=== PATIENT | female | born 1980 | race African-American/Black ===

== ENCOUNTER 2022-04-23 13:22 | Outpatient (CLI) | payer OTHER, SELFPAY ==
--- NOTE | ~2022-04-23 | US_ITS ---
Pelvic ultrasound. Clinical History: Abnormal uterine bleeding Technique: Realtime transabdominal and transvaginal scanning of the pelvis was performed. Color flow Doppler and Doppler spectral analysis were performed. Findings: The uterus is anteverted. IUD in place. The endometrial stripe has a thickness of 10 mm. My ometrium is heterogeneous, possibly representing ill-defined fibroids. The right ovary measures 5.3 x 2.2 x 2.5 cm. Small hemorrhagic right ovarian cyst measures 2.7 cm in diameter. The left ovary measures 3.4 x 2.1 x 2.2 cm. No significant left ovarian or adnexal mass is seen. There is a small amount of free fluid in the cul de sac. Impression: Heterogeneous myometrium, possibly representing ill-defined fibroids. IUD in place. 2.7 cm hemorrhagic right ovarian cyst. Given small size, no further follow-up required. Small amount of free fluid. Reviewed, dictated and finalized at location [] AL KILLER Impression: Heterogeneous myometrium, possibly representing ill-defined fibroids. IUD in place. 2.7 cm hemorrhagic right ovarian cyst. Given small size, no further follow-up r equired. Small amount of free fluid.
--- NOTE | ~2022-04-23 | US_ITS ---
EXAMINATION: US soft tissue groin RT DATE: 04/23/2022 14:47 INDICATION: Right inguinal mass. TECHNIQUE: Multiple grayscale and Doppler ultrasound images of the right groin were obtained. COMPARISON: None FINDINGS: Small fat-containing indirect right inguinal hernia measuring 1.8 x 1.8 x 0.7 cm with orifice arising just lateral to the origin of the hypogastric vessels. No evident enlargement with Valsalva or evide nt herniated bowel. IMPRESSION: 1. Small fat-containing indirect right inguinal hernia. Reviewed, dictated and finalized at location A. CATION AIDE
== END 2022-04-23 13:23 | disposition home or self-care (01) ==
PROVIDERS: PCP Nurse Practitioner; Visit Provider Nurse Practitioner
DX: Z30.431 Encounter for routine checking of intrauterine contraceptive device (principal); M79.9 Soft tissue disorder, unspecified; N83.201 Unspecified ovarian cyst, right side
CPT/HCPCS: 76830; 76856; 76882

== ENCOUNTER 2022-06-24 08:00 | Outpatient (CLI) | payer OTHER, SELFPAY ==
--- NOTE | ~2022-06-24 | MM_ITS ---
EXAMINATION: MM screening adali BI w neal HISTORY: Screening mammogram TECHNIQUE: Craniocaudal and mediolateral oblique 3-D tomosynthesis images were obtained and synthetic 2-D images were generated. CAD analysis was submitted and interpreted. COMPARISON: No prior mammogram is available for comparison at this institution. BREAST PARENCHYMAL COMPOSITION: The breasts are extremely dense, which lowers the sensitivity of mamm ography. FINDINGS: Occasional bilateral benign calcifications. There is no evidence of suspicious mass, calcif ication, or architectural distortion to suggest malignancy in either breast. There has been no suspic ious interval change. IMPRESSION: 1. No mammographic evidence of malignancy. 2. Recommend routine screening mammography in one year. BI-RADS Category 2: Benign finding(s). Reviewed, dictated and finalized at location A. COUNTER WORKER
== END 2022-06-24 08:01 | disposition home or self-care (01) ==
LOC: ANHIMG 08:06
PROVIDERS: PCP Nurse Practitioner; Visit Provider Nurse Practitioner
DX: Z12.31 Encounter for screening mammogram for malignant neoplasm of breast (principal)
CPT/HCPCS: 77063; 77067

== ENCOUNTER 2022-07-16 14:59 | Outpatient (CLI) | payer OTHER, SELFPAY | END 2022-07-16 15:00 | disposition home or self-care (01) | LOC: ANHLAB 15:00 | PROVIDERS: PCP Nurse Practitioner; Visit Provider Anesthesiology | DX: K40.90 Unilateral inguinal hernia, without obstruction or gangrene, not specified as recurrent (principal); Z01.818 Encounter for other preprocedural examination | CPT/HCPCS: 36415; 86850; 86900; 86901 ==

== ENCOUNTER 2022-07-18 00:30 | Day surgery (SDC) | payer OTHER, SELFPAY ==
[2022-07-10 14:59] VITALS: BMI 26.2
--- NOTE | 2022-07-10 15:08 | PC.NURSE ---
Report to the Outpatient Waiting Room, entrance under the green pavilion located off [facility], at time 10:00AM on date 07-18-22. Planned Procedure Time: 12:00PM. Time changes happen often and if your time is changed the preop area will call you the afternoon before. - You and your visitor will be asked to self-screen and do not enter if you have any COVID symptoms. - Only one visitor is requested with a max of two and NO children visitors are allowed at this time. - The patient visitor may be requested to leave or wait in car when not with patient due to distancing restrictions. - A mask is optional within the hospital at this time. Patients may have clear liquids (water, carbonated beverages, clear teas, apple juice) until 3 hours prior to surgery (09:00AM) with a maximum of 20 ounces. - No food from midnight until time of surgery Take the following medications with a SIP of water the morning of surgery: N/A DO NOT STOP ANY OF YOUR OTHER PRESCRIPTION MEDICATIONS PRIOR TO SURGERY ?EXCEPT THE FOLLOWING Medications to discontinue per physician VITAMINS AND SUPPLEMENTS Date to take last dose 07-14-22 Please no make-up, nail vietnamese, hairspray, perfume, deodorant, or body powder the day of surgery. No jewelry (including any body piercings) or valuables the day of surgery, leave them at home. Please take a shower or bath the night before, or the morning of, surgery with an antibacterial soap. Wear comfortable, loose fitting clothing. - Jewelry must be removed prior to entering the operating room. Rings and piercings that are not removed may be cut off. - The hospital will not accept responsibility for valuables. - Please leave all valuables, including medications, at home the day of surgery. If you are going home after surgery, a licensed charter and tour bus driver must drive you home. - NO public transportation without another adult if you receive anesthesia. - We recommend that an adult stay with you for 24 hours following discharge. - We also recommend that you do not drive, make important decision, drink alcoholic beverages, or take any drugs that were not prescribed by your health care provider for at least 24 hours after your discharge time. If you or anyone in your household have experienced Covid symptoms in the past week, please notify your surgeon or the nurse liaison at the phone number below for possible testing. Telephone instructions given to PATIENT and asked if any additional questions and then verbalized understanding. Patient advised to call surgeon office or pre surgery nurse liaison [phone] if any additional questions.
--- NOTE | 2022-07-17 09:54 | P.PNAN_ITS ---
Anes - Initial Pre Proc Eval Procedure: Operation Date: 07/18/22 12:00 Proposed Procedures p Robotic Assisted Right Inguinal Hernia Repair with Mesh - Mery De Santiago MD Date/Time: 07/17/22 09:54 Surgeon: Mery De Santiago MD Pre Op Diagnosis: Right Inguinal Hernia Patient Data Age: 41 Gender: F Height: 1.55 m Weight: 63 kg Allergies Allergy/AdvReac Type Severity Reaction Status Date / Time Sulfa (Sulfonamide Allergy Severe Hives Verified 07/10/22 15:01 Antibiotics) Home Medications Medication Instructions Recorded Confirmed Type multivitamin 1 tablet PO DAILY 05/08/22 07/10/22 History ascorbate calcium (vitamin C) 500 1,650 mg PO DAILY 07/10/22 07/10/22 History mg capsule calcium carbonate-vitamin D3 500 1 cap PO DAILY 07/10/22 07/10/22 History mg (1,250 mg)-50 unit capsule lactobacillus combination no.8 3 3 cell PO DAILY 07/10/22 07/10/22 History billion cell capsule Patient hx anesthesia problems: none Family hx anesthesia problems: none Results Review: All pre-operative results and documents have been reviewed as part of the pre- operative evaluation. FOR[facility]LY [facility] Past Medical History Medical History (Updated 07/17/22 @ 09:54 by Chas Vanessa MD) Anxiety Depression Overweight (BMI 25.0-29.9) Family History Family History Father Hypertension Mother Hypertension Social History Social History Social History: caffeine use: Drinks 2 cups coffee daily Smoking status: Never smoker Second hand tobacco smoke exposure: No Alcohol intake: current Drinks per week: 1 Alcohol use details: drinks tequila socially Substance use: never Substance use type: does not use Living arrangements: with family Additional living arrangements comments: single 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 Informed Consent: The patient's anesthetic plan and its attendant risks and benefits were discussed with the patient/family/POA. Questions were solicited and answers provided to the satisfaction of the patient/family/POA.
[2022-07-18] VITALS (11 sets, daily range): BP systolic 97–120; BP diastolic 50–67; PULSE 42–84; RESP 14–20; TEMP 36.6; O2SAT 95–100
[2022-07-18] MEDS: ACETAMINOPHEN 500 MG TABLET 1000 MG PO (10:28)
[2022-07-18] MEDS: LACTATED RINGERS 1,000 ML 30 ML IV CONT ×2 (10:42→13:28)
[2022-07-18] MEDS: KETOROLAC 15 MG/ML VIAL (*BKC) IV PUSH (10:43)
--- NOTE | 2022-07-18 11:58 | WPDHPUPDATE1 ---
History and Physical Update Update Date/Time: 07/18/22 11:58 History and Physical has been reviewed, including an updated exam of the patient. There are NO changes in the patient's condition. Risks, benefits, and alternatives have been discussed and questions answered. Patient agrees to proceed with procedure.
--- NOTE | 2022-07-18 11:58 | PM.IMHP ---
H&P: HPI History of Present Illness Date/Time: 07/18/22 11:58 Chief Complaint: right inguinal hernia Narrative: Meme is a 41 y/o female who presents with a right inguinal hernia at the request of Dr. Au. She reports first noticing a bulge in 2019. She states the bulge does not typically cause pain. She is able to lay down and reduce the bulge. U/S was done at on 04/23/22 which showed a small fat containing indirect right inguinal hernia. She is having regular BM's without difficulty. Review of Systems Review of Systems: All systems reviewed & are unremarkable except as noted in HPI and below PMFSH Past Medical History Medical History Anxiety Depression Overweight (BMI 25.0-29.9) Family History Family History Father Hypertension Mother Hypertension Social History Social History Social History: caffeine use: Drinks 2 cups coffee daily Smoking status: Never smoker Second hand tobacco smoke exposure: No Alcohol intake: current Drinks per week: 1 Alcohol use details: drinks tequila socially Substance use: never Substance use type: does not use Living arrangements: with family Additional living arrangements comments: single 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 Spiritual care concerns: No Meds Home Medications and Allergies Home Medications Medication Instructions Recorded Confirmed Type multivitamin 1 tablet PO DAILY 05/08/22 07/18/22 History ascorbate calcium (vitamin C) 500 1,650 mg PO DAILY 07/10/22 07/18/22 History mg capsule calcium carbonate-vitamin D3 500 1 cap PO DAILY 07/10/22 07/18/22 History mg (1,250 mg)-50 unit capsule lactobacillus combination no.8 3 3 cell PO DAILY 07/10/22 07/18/22 History billion cell capsule Allergies Allergy/AdvReac Type Severity Reaction Status Date / Time Sulfa (Sulfonamide Allergy Severe Hives Verified 07/18/22 10:26 Antibiotics) Vital Signs Vital Signs - 24 hr 07/18/22 10:05 Temperature 36.6 C Pulse Rate 59 L Respiratory Rate 16 Blood Pressure 105/54 L Pulse Oximetry 100 Oxygen Delivery Room Air Exam Const: General: cooperative, comfortable and no acute distress Resp: Auscultation: clear to auscultation bilaterally Cardio: Rate: regular rate Rhythm: regular rhythm GI: Inspection: normal to inspection and non-distended GI Palp: No abdominal tenderness, Yes Soft to palpation, No Tenderness to palpation present (GI), No Guarding due to palpation present (GI), No Rigid due to palpation and Yes Hernia present Other: right inguinal hernia - reducible Assessment and Plan Assessment and plan (1) Reducible right inguinal hernia: Code(s): K40.90 - Unilateral inguinal hernia, without obstruction or gangrene, not specified as recurrent Status: Acute Assessment and Plan: increasing size and symptomatology over last few mos, will setup for robotic assisted repair c mesh
[2022-07-18] MEDS: ceFAZolin 2 GM/D5W 50 ML 2 GM/50 ML BAG IVPB (12:06)
[2022-07-18] MEDS: BUPIVACAINE/EPINEPHRINE 0.25% 50 ML VIAL 30 ML INFILTRATE (12:26)
--- NOTE | 2022-07-18 13:21 | W.PM.PROC2 ---
Procedure Note - Detailed Date of Procedure 07/18/22 Pre-op Diagnosis Right Inguinal Hernia Post-op Diagnosis Same Procedure Performed robotic assisted right inguinal hernia repair with mesh Surgeon Mery De Santiago MD Anesthesia General Indications 41-year-old female with progressively worsening right inguinal hernia over the last few years Findings indirect right inguinal hernia Description of Procedure Patient was brought into the operating room and placed in the supine position. After adequate induction of general anesthesia, the patient was prepped and draped in normal sterile fashion. A time-out was then done to verify the patient's identity, as well as the procedure being performed. Began by making a 8 mm incision in the supraumbilical region, a Veress needle was then placed into the peritoneal cavity. CO2 gas was then insufflated and after adequate pneumoperitoneum was achieved, the Veress needle was removed. I then placed an 8 mm trocar through this incision. I then placed the endoscope through this trocar site and under direct visualization placed 2 further 8 mm ports in the right and left mid abdomen. The [employer] robot was then docked to the 3 trocar sites. I then scrubbed out and went to the robotic console. Upon examining the pelvis, it was noted that the patient had a moderate right inguinal hernia. The left side was examined and no hernia defect was noted. I began by making a preperitoneal flap approximately 6 cm superior to the defect. This flap was carried medially past the umbilical ligaments in laterally to the transversalis. It then began dissection of my medial compartment taking this down to the pubic tubercle. I then began the lateral dissection taking this down to the transversalis fascia. Once these compartments were achieved, I began dissection around the round ligament. A moderate indirect hernia was noted at this point. Using careful dissection, was able to reduce indirect hernia sac off the round ligament. I then also transected the round ligament at this point. Once this was adequately done, I went ahead and placed a large piece of 3D Max mesh into the abdominal cavity. The mesh was carefully positioned, centering the center of the mesh over the indirect defect. Once this was done, was very satisfied with our repair. Using 3-0 Vicryl sutures, I tacked the mesh medially to Salomón's ligament. Two lateral sutures were placed from the mesh to the transversalis fascia. I then closed the peritoneal flap with a running 2.0 V Lock suture. The abdomen was then desufflated, and all ports were removed. All incisions were then closed with the 4.0 monocryl suture. Dermabond was placed on each wound. The patient tolerated the procedure well, was extubated in the operating room postoperatively, and will now be transferred to the recovery room in stable condition. Implants large 3DMax mesh Estimated Blood Loss 5 Drains No Packing No Pathology None sent Complications No immediate complications Condition Stable Disposition PACU [facility] Billing Surgery - Charge Forward: Surgery Billing
[2022-07-18] MEDS: fentaNYL CITRATE INJ (*CRX) 100 MCG/2 ML VIAL 25 MCG IV PUSH ×2 (13:58→14:03)
[2022-07-18] MEDS: oxyCODONE (*CRX) 5 MG/5 ML ORAL SOLN IR PO (14:40)
== END 2022-07-18 16:16 | disposition home or self-care (01) ==
PROVIDERS: PCP Nurse Practitioner; Visit Provider Surgery
PROC: 8E0Y4CZ Robotic Assisted Procedure of Lower Extremity, Percutaneous Endoscopic Approach (ICD-10-PCS; CPT 49650; principal; 2022-07-18 12:00)
DX: K40.90 Unilateral inguinal hernia, without obstruction or gangrene, not specified as recurrent (principal)
CPT/HCPCS: 49650; S2900; 36415; 86850; 86900; 86901; A9270; C1781; J0690; J1100; J1170; J1885; J2250; J2405; J2704; J2710; J3010; J7120